=== PATIENT | male | born 1990 | race Caucasian/White ===

== ENCOUNTER 2016-08-03 08:52 | Outpatient (CLI) | payer OTHER | END 2016-08-03 08:53 | disposition critical access hospital (66) | DX: T45.0X4A Poisoning by antiallergic and antiemetic drugs, undetermined, initial encounter (principal); T39.314A Poisoning by propionic acid derivatives, undetermined, initial encounter; T39.014A Poisoning by aspirin, undetermined, initial encounter | CPT/HCPCS: A0425; A0429 ==

== ENCOUNTER 2016-08-03 09:20 | Inpatient (IN) | payer OTHER ==
[2016-08-03] MEDS ORDERED: ACETYLCYSTEINE IV STA (11:43)
[2016-08-03] MEDS ORDERED: DEXTROSE 5% IV STA (11:43)
[2016-08-03] MEDS ORDERED: ONDANSETRON 4 MG/2 ML VIAL IVP PRN (12:11)
[2016-08-03] MEDS ORDERED: SODIUM CHLORIDE FLUSH 0.9% 10 ML SYRINGE IVP PRN (12:11)
[2016-08-03] MEDS ORDERED: ONDANSETRON ODT 4 MG TABLET TL PRN (12:11)
[2016-08-03] MEDS ORDERED: POTASSIUM CHLOR 10 MEQ/100 ML 100 ML IV ONE (12:28)
[2016-08-03] MEDS ORDERED: SODIUM CHLORIDE 0.9% 500 ML IV PRN (13:01)
[2016-08-03] MEDS ORDERED: SODIUM CHLORIDE 0.9% 500 ML IV ONE (13:02)
[2016-08-03] MEDS: FAMOTIDINE 20 MG/50 ML 50 ML IV SCH ×2 (13:13→21:44)
[2016-08-03] MEDS ORDERED: ACETYLCYSTEINE IV ONE ×2 (13:30→19:45)
[2016-08-03] MEDS ORDERED: DEXTROSE 5% IV ONE ×2 (13:30→19:45)
[2016-08-03] MEDS: SODIUM CHLORIDE FLUSH 0.9% 10 ML SYRINGE IVP SCH (14:02)
[2016-08-03] MEDS ORDERED: PROCHLORPERAZINE 10 MG/2 ML VIAL IVP PRN (14:35)
[2016-08-03] MEDS ORDERED: PROMETHAZINE INJ 25 MG in SODIUM CHLORIDE 0.9% 50 ML IV PRN (14:36)
[2016-08-03] MEDS: POTASSIUM CHLOR 10 MEQ/100 ML 100 ML IV SCH ×3 (15:39→16:40)
[2016-08-04] MEDS: POTASSIUM CHLORIDE 20 MEQ TABLET PO SCH ×2 (08:13→13:46)
[2016-08-04] MEDS: FAMOTIDINE 20 MG/50 ML 50 ML IV SCH (09:19)
[2016-08-04] MEDS: SODIUM CHLORIDE FLUSH 0.9% 10 ML SYRINGE IVP SCH ×3 (12:07→16:35)
== END 2016-08-04 16:30 | DRG 918 ==
DX: T39.1X1A Poisoning by 4-Aminophenol derivatives, accidental (unintentional), initial encounter (principal); T39.011A Poisoning by aspirin, accidental (unintentional), initial encounter; T51.0X1A Toxic effect of ethanol, accidental (unintentional), initial encounter; E87.6 Hypokalemia; R11.2 Nausea with vomiting, unspecified; F10.10 Alcohol abuse, uncomplicated; F41.1 Generalized anxiety disorder; Y90.8 Blood alcohol level of 240 mg/100 ml or more; Z81.1 Family history of alcohol abuse and dependence; Z78.1 Physical restraint status